=== PATIENT | female | born 1950 | race Caucasian/White ===

== ENCOUNTER 2019-11-06 07:48 | Day surgery (SDC) | payer MEDICARE, BC ==
[~2019-11-06 07:48] MED LIST: Midazolam 1 MG/ML 2 ML SDV ONE; Propofol 200 MG/20 ML SDV ONE; fentaNYL 100 MCG/2 ML SDV ONE
[2019-11-06] MEDS ORDERED: Dextrose 5%-Lactated Ringers 1,000 ML IV SCH (08:15)
[2019-11-06 10:05] VITALS: BP 112/62; PULSE 53
--- NOTE | 2019-11-08 08:41 | OR ---
DATE OF PROCEDURE: 11/06/2019 SURGEON: Vamsi Chavez MD PREOPERATIVE DIAGNOSIS: Indications for screening colonoscopy. POSTOPERATIVE DIAGNOSIS: Normal colonoscopic examination. OPERATIVE PROCEDURE: Flexible colonoscopy. ANESTHESIA: IV sedation. INDICATION FOR PROCEDURE: This is a 69-year-old female presenting for screening colonoscopy. She does have history of a polyp in the colon several years ago. Plan is to proceed with a colonoscopy with polypectomy and/or biopsy as indicated. Potential risks of the procedure including bleeding and perforation were discussed, and the patient wishes to proceed. DETAILS OF PROCEDURE: The patient was taken to the operating room and placed in a left lateral decubitus position. IV sedation was administered, after which, the initial digital rectal exam was performed and was unremarkable. Colonoscope was then passed to the level of the rectum with retroflexion revealing uncomplicated hemorrhoidal columns. The scope was then eventually passed to the level of the cecum. The prep was quite good with only a small amount of liquid stool being present. To that level, there were no areas of diverticular disease, no areas of colitis, no polyps or other signs of neoplasia. The scope was then withdrawn, and the above findings reconfirmed. The procedure was then concluded. The patient was taken to the recovery room in satisfactory condition. With the patient having history of previous colon polyp, she should be on a 5-year schedule for her followup colonoscopy. Vamsi Chavez MD /[id number]
== END 2019-11-06 10:31 | disposition home or self-care (01) ==
LOC: JP.SDS 07:48
PROVIDERS: ATTEND Surgery
DX: Z12.11 Encounter for screening for malignant neoplasm of colon (principal); K64.9 Unspecified hemorrhoids; Z86.010 Personal history of colon polyps
CPT/HCPCS: G0121; J2250; J2704; J3010; J7121

== ENCOUNTER 2023-02-07 05:29 | Day surgery (SDC) | payer MEDICARE, BC ==
[2023-02-07] MEDS ORDERED: Lidocaine 1% with EPINEPHrine 1:100,000 50 ML MDV ONE (06:44)
[2023-02-07] MEDS ORDERED: Bupivacaine 0.5% 50 ML MDV ONE (06:44)
[2023-02-07] MEDS ORDERED: Dextrose 5%-Lactated Ringers 1,000 ML IV SCH (07:06)
[2023-02-07] MEDS ORDERED: Propofol 200 MG/20 ML SDV ONE (07:29)
[2023-02-07] MEDS ORDERED: Ondansetron 4 MG/2 ML SDV ONE (07:29)
[2023-02-07] MEDS ORDERED: fentaNYL 250 MCG/5 ML SDV ONE (07:29)
[2023-02-07] MEDS ORDERED: Rocuronium 50 MG/5 ML Vial ONE (07:29)
[2023-02-07] MEDS ORDERED: Succinylcholine 200 MG/10 ML MDV ONE (07:29)
[2023-02-07] MEDS ORDERED: Neostigmine Methylsulfate 1 MG/ML 5 ML Syringe ONE (07:29)
[2023-02-07] MEDS ORDERED: Dexamethasone 4 MG/ML SDV ONE ×2 (07:29→08:25)
[2023-02-07] MEDS ORDERED: Glycopyrrolate 0.2 MG/ML 5 ML MDV ONE (07:29)
[2023-02-07] MEDS ORDERED: Celecoxib 200 MG Cap PO ONE (07:30)
[2023-02-07 07:45] LABS: ESTIMATED GFR 78 mL/min (>60)
[2023-02-07] MEDS ORDERED: ceFAZolin 2 GM in Premix Bag 1 BAG IV ONE (08:30)
[2023-02-07] MEDS ORDERED: Ketamine 500 MG/5 ML MDV IV SCH (08:30)
[2023-02-07] MEDS ORDERED: Ketamine 17 MG in Sodium Chloride 0.9% 19.83 ML IV SCH (08:30)
[2023-02-07] MEDS ORDERED: Linezolid 600 MG/300 ML Premix Bag IRR ONE (09:25)
[2023-02-07] MEDS ORDERED: Bacitracin Oint 1 GM U/D Packet ONE (09:40)
[2023-02-07] MEDS ORDERED: traMADol 50 MG Tab PO ONE (11:30)
[2023-02-07 11:36] VITALS: BP 128/68; PULSE 48
== END 2023-02-07 11:50 | disposition home or self-care (01) ==
LOC: JP.SDS 05:29
PROVIDERS: ATTEND Surgery
DX: C43.71 Malignant melanoma of right lower limb, including hip (principal); E03.9 Hypothyroidism, unspecified; E78.5 Hyperlipidemia, unspecified; G47.00 Insomnia, unspecified; Z79.890 Hormone replacement therapy; Z79.899 Other long term (current) drug therapy
CPT/HCPCS: 11606; 12034; 36415; 38531; 38900; 78195; 80053; 83615; A9270; A9541; J0690; J1100; J2020; J2405; J2704; J2710; J3010; J3490; J7121; J0330

== ENCOUNTER 2023-08-22 14:37 | Observation (INO) | payer MEDICARE, BC ==
[2023-08-22] MEDS ORDERED: HYDROmorphone 0.5 MG/0.5 ML Syringe IM ONE (16:01)
[2023-08-22] MEDS ORDERED: Sodium Chloride 0.9% 10 ML Syringe FLUSH PRN (16:42)
[2023-08-22 17:09] LABS: BASOPHILS ABSOLUTE AUTO 0.03 K/uL (0.00-0.10); BASOPHILS PERCENT AUTO 0.3 % (0.1-1.3); EOSINOPHILS PERCENT AUTO 1.2 % (0.0-5.4); HEMATOCRIT 35.7 % (34.3-46.0); HEMOGLOBIN 11.9 g/dL (11.2-15.5); IMMATURE GRAN ABSOLUTE AUTO 0.03 K/uL (0.00-0.23); IMMATURE GRAN PERCENT AUTO 0.3 % (0.0-0.7); LYMPHOCYTES ABSOLUTE AUTO 1.58 K/uL (0.8-3.3); LYMPHOCYTES PERCENT AUTO 18.4 % (11.4-47.7); MEAN CORPUSCULAR HEMOGLOBIN 30.4 pg (31.6-35.5); MEAN CORPUSCULAR HGB CONC 33.3 g/dL (31.6-35.5); MEAN CORPUSCULAR VOLUME 91.3 fL (81.4-99.0); MONOCYTES ABSOLUTE AUTO 0.44 K/uL (0.20-0.90); MONOCYTES PERCENT AUTO 5.1 % (3.3-12.6); NEUTROPHILS ABSOLUTE AUTO 6.42 K/uL (1.0-7.6); NEUTROPHILS PERCENT AUTO 74.7 % (40.0-78.1); PLATELET COUNT,PLT 225 K/uL (130-375); RED BLOOD CELL COUNT 3.91 M/uL (3.77-5.24); WHITE BLOOD CELL COUNT,WBC 8.6 K/uL (3.2-11.0)
[2023-08-22] MEDS ORDERED: Bupivacaine 0.5% 30 ML SDV ONE (17:11)
[2023-08-22] MEDS ORDERED: Ondansetron 4 MG/2 ML SDV ONE (17:16)
[2023-08-22] MEDS ORDERED: Neostigmine Methylsulfate 1 MG/ML 5 ML Syringe ONE (17:16)
[2023-08-22] MEDS ORDERED: Dexamethasone 4 MG/ML SDV ONE (17:16)
[2023-08-22] MEDS ORDERED: Succinylcholine 200 MG/10 ML MDV ONE (17:16)
[2023-08-22] MEDS ORDERED: fentaNYL 250 MCG/5 ML SDV ONE (17:16)
[2023-08-22] MEDS ORDERED: Rocuronium 50 MG/5 ML Vial ONE (17:16)
[2023-08-22] MEDS ORDERED: Propofol 200 MG/20 ML SDV ONE (17:16)
[2023-08-22] MEDS ORDERED: Glycopyrrolate 0.2 MG/ML 5 ML MDV ONE (17:16)
[2023-08-22 17:29] LABS: A/G RATIO 1.2 (1.2-2.2); ALANINE AMINOTRANSFERASE,ALT 26 U/L (12-78); ALKALINE PHOSPHATASE 46 U/L (46-116); ANION GAP 12.8 mmol/L (5.0-14.0); ASPARTATE AMNIOTRANSFERASE,AST 25 U/L (15-37); BILIRUBIN TOTAL 0.4 mg/dL (0.2-1.0); BLOOD UREA NITROGEN,BUN 14 mg/dL (7-18); CALCIUM 8.5 mg/dL (8.5-10.1); CARBON DIOXIDE,CO2 25 mmol/L (21-32); CHLORIDE,CL 104 mmol/L (100-108); CREATININE 0.6 mg/dL (0.6-1.0); EST CRCL DRUG DOSING (CG) 77.01 mL/min; ESTIMATED GFR 94 mL/min (>60); GLUCOSE RANDOM 87 mg/dL (74-106); POTASSIUM,K 3.6 mmol/L (3.6-5.2); PROTEIN TOTAL,TP 7.3 g/dL (6.4-8.2); SODIUM,NA 142 mmol/L (140-148)
[2023-08-22] MEDS ORDERED: ceFAZolin 1 GM Vial ONE (17:36)
[2023-08-22] MEDS ORDERED: Sodium Chloride 0.9% 10 ML ONE (18:13)
[2023-08-22] MEDS ORDERED: Lactated Ringers 1,000 ML ONE ×2 (19:06→19:19)
[2023-08-22] MEDS ORDERED: Meperidine PF 100 MG/ML Syringe IVPUSH PRN (19:34)
[2023-08-22] MEDS ORDERED: Morphine 2 MG/ML SYRINGE IVPUSH PRN (19:39)
[2023-08-22] MEDS ORDERED: Sodium Chloride 0.9% 1,000 ML IV SCH (19:45)
[2023-08-22] MEDS ORDERED: oxyCODONE 5 MG Tab PO PRN ×2 (19:48)
[2023-08-22] MEDS ORDERED: traZODone 50 MG Tab PO SCH ×2 (21:00→21:55)
[2023-08-22] MEDS: Nozin Nasal Sanitizer NASBOTH SCH (21:48)
[2023-08-22] MEDS: Acetaminophen 325 MG Tab PO SCH (21:48)
[2023-08-23] MEDS: Acetaminophen 325 MG Tab PO SCH ×2 (01:56→08:12)
[2023-08-23] MEDS: traMADol 50 MG Tab PO PRN ×2 (01:57→11:36)
[2023-08-23] MEDS: Levothyroxine 50 MCG Tab PO SCH ×2 (07:12→08:12)
[2023-08-23] MEDS ORDERED: Levothyroxine 100 MCG Tab PO SCH (07:30)
[2023-08-23] MEDS: Nozin Nasal Sanitizer NASBOTH SCH (08:13)
[2023-08-23 08:44] LABS: BASOPHILS PERCENT AUTO 0.1 % (0.1-1.3); HEMATOCRIT 31.9 % (34.3-46.0); HEMOGLOBIN 10.8 g/dL (11.2-15.5); IMMATURE GRAN PERCENT AUTO 0.1 % (0.0-0.7); LYMPHOCYTES ABSOLUTE AUTO 1.07 K/uL (0.8-3.3); LYMPHOCYTES PERCENT AUTO 15.9 % (11.4-47.7); MEAN CORPUSCULAR HEMOGLOBIN 30.6 pg (31.6-35.5); MEAN CORPUSCULAR HGB CONC 33.9 g/dL (31.6-35.5); MEAN CORPUSCULAR VOLUME 90.4 fL (81.4-99.0); MONOCYTES ABSOLUTE AUTO 0.42 K/uL (0.20-0.90); MONOCYTES PERCENT AUTO 6.3 % (3.3-12.6); NEUTROPHILS PERCENT AUTO 77.6 % (40.0-78.1); PLATELET COUNT,PLT 212 K/uL (130-375); RED BLOOD CELL COUNT 3.53 M/uL (3.77-5.24); WHITE BLOOD CELL COUNT,WBC 6.7 K/uL (3.2-11.0)
[2023-08-23 08:46] LABS: BASOPHILS ABSOLUTE AUTO 0.01 K/uL (0.00-0.10); IMMATURE GRAN ABSOLUTE AUTO 0.01 K/uL (0.00-0.23)
[2023-08-23] MEDS ORDERED: Multivitamins with Iron/Calcium/Folic Acid/Minerals Tab PO SCH (09:00)
[2023-08-23] MEDS ORDERED: atorvaSTATin 20 MG Tab PO SCH (09:00)
[2023-08-23] MEDS ORDERED: BIOTIN 5 MG PO SCH (09:00)
[2023-08-23] MEDS ORDERED: Aspirin 81 MG Tab.Chew PO SCH (09:00)
[2023-08-23 11:34] VITALS: PULSE 52
[2023-08-23 11:36] VITALS: BP 84/39
== END 2023-08-23 14:45 | disposition home or self-care (01) ==
LOC: JP.ED 14:37 → JP.SDS 18:05 → JP.MS 19:39
PROVIDERS: ADMIT Specialist; ATTEND Specialist
DX: S82.841A Displaced bimalleolar fracture of right lower leg, initial encounter for closed fracture (principal); M81.0 Age-related osteoporosis without current pathological fracture; E78.00 Pure hypercholesterolemia, unspecified; G43.909 Migraine, unspecified, not intractable, without status migrainosus; E03.9 Hypothyroidism, unspecified; Z20.822 Contact with and (suspected) exposure to COVID-19; Z79.82 Long term (current) use of aspirin; Z79.890 Hormone replacement therapy; Z79.899 Other long term (current) drug therapy; W19.XXXA Unspecified fall, initial encounter
CPT/HCPCS: 27814; 36415; 73060; 73552; 73610; 76000; 80053; 85025; 96372; 97116; 97161; 99284; 99285; A9270; C1713; G0378; J0330; J0690; J1100; J1170; J2175; J2405; J2704; J3010; J3490; J7120; U0002; J2710